=== PATIENT | female | born 1985 | race Caucasian/White ===

== ENCOUNTER 2019-05-31 05:14 | Inpatient (IN) | payer OTHER ==
[~2019-05-31] VITALS: Ht 175.3 cm; Wt 79.4 kg
[2019-05-31] VITALS (21 sets, daily range): BP systolic 93–113; BP diastolic 50–89; Ht 175.3 cm; Wt 79.4 kg
[2019-05-31] MEDS ORDERED: METOCLOPRAMIDE 10 MG/2 ML SDV IVP ONE (05:15)
[2019-05-31] MEDS ORDERED: CITRIC ACID/SOD CIT 15 ML UDC PO ONE (05:15)
[2019-05-31] MEDS ORDERED: cefOXitin/DEX(*) 2GM/50ML PREM 50 ML IVPB ONE (05:15)
[2019-05-31] MEDS ORDERED: FAMOTIDINE 20 MG/50 ML PREMIX IVPB ONE (05:15)
[2019-05-31] MEDS ORDERED: CLINDAMYCIN(*) 900 MG/NS 50 ML 50 ML IVPB ONE (05:15)
[2019-05-31] MEDS ORDERED: ONDANSETRON 4 MG/2 ML VIAL ONE (05:52)
[2019-05-31] MEDS ORDERED: MORPHINE PF 5 MG/10 ML AMP ONE (05:53)
[2019-05-31] MEDS ORDERED: fentaNYL CITR 100 MCG/2 ML AMP ONE (05:54)
[2019-05-31] MEDS ORDERED: OXYTOCIN 10 UNIT/ML SDV ONE (05:57)
[2019-05-31] MEDS ORDERED: PHENYLEPHRINE 10 MG/1 ML VIAL ONE (05:57)
[2019-05-31] MEDS ORDERED: NS(*) 0.9% 100 ML BAG 100 ML ONE (05:57)
[2019-05-31] MEDS ORDERED: ONDANSETRON 4 MG/2 ML VIAL IVP ONE (06:00)
[2019-05-31] MEDS: LR(*) 1000 ML BAG 1,000 ML IV SCH ×2 (06:00→06:20)
[2019-05-31 06:08] LABS: PLATELET COUNT, AUTOMATED 170 K/uL (150-450)
[2019-05-31] MEDS ORDERED: MISOPROSTOL 200 MCG TAB ONE (07:01)
--- NOTE | 2019-05-31 07:01 | History & Physical ---
History of Present Illness Age of Patient: 33 : 1 Para or TPAL: 0 EDC per LMP: Jun 27, 2019 Estimated Gestational Age: 36.1 Chief Complaint History of Present Illness Gladys is 36.1 weeks and has a complicated by complete placenta previa. I have been monitoring the pt closely and fortunately has not had any bleeding events. 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 She is otherwise healthy and has been uncomplicated. By the advice of MFM and for the safety of the mother, we are electing to deliver at 36 weeks and via . Past Medical, Surgical, Family and Obstetric Histories reviewed. Please see [facility] [place] chart. History Allergies: Coded Allergies: Penicillins (Verified Allergy, Mild, Hives, 05/31/19) Sulfa (Sulfonamide Antibiotics) (Verified Allergy, Unknown, N/V, 05/31/19) Review of Systems All Systems Reviewed/Normal: Yes, Except as Noted Exam General Exam General Apperance: Alert/Awake/No Acute Distress Neuro: No Gross deficits Cardiovascular: Regular Rate and Rhythm Respiratory: No Respiratory Distress Abdomen: Soft, Non-Tender, Non-Distended, Gravid - Non-Tender Integumentary: Skin Intact without Lesions or Rash Psychological: Alert & Oriented X3, Appropriate Mood & Affect Fetus Heart Tone Variabilty: Moderate FHT Accelerations: 15X15 FHT Category: I Medical Decision Making Data Points Result Diagram: 05/31/19 0541 VTE Prophylasis: Adult Deep Vein Thrombosis/Pulmonary: No Pharmacological Contraindicati: Pt at Low Risk for VTE Mechanical Contraindications: Pt at Low Risk for VTE Assessment and Plan [employer] Plan: Routine Labor/Induct Care Problems: (1) 36 weeks gestation of (2) Complete placenta previa nos or without hemorrhage, third trimester Assessment & Plan: Reviewed the risk of hemorrhage at delivery and we have PRBCs type and cross matched ready for her. Reviewed hospital stay and recovery. All questions answered. JOANNE MIMS MD May 31, 2019 07:01
[2019-05-31] MEDS ORDERED: DEXAMETHASONE SOD 4 MG/ML VIAL ONE (07:29)
[2019-05-31] MEDS ORDERED: DLR(*) 1000 ML BAG 1,000 ML IV PRN (08:21)
[2019-05-31] MEDS ORDERED: OXYTOCIN 30 UNIT/NS 500 ML 500 ML IV PRN (08:21)
[2019-05-31] MEDS ORDERED: ACETAMINOPHEN 325 MG TAB PO PRN (08:25)
[2019-05-31] MEDS ORDERED: LANOLIN OINT 7 GM TUBE TP PRN (08:25)
[2019-05-31] MEDS ORDERED: PROMETHAZINE 25 MG/ML 1 ML AMP IVP PRN (08:25)
[2019-05-31] MEDS ORDERED: SIMETHICONE 80 MG CHEW CHEW PRN (08:25)
[2019-05-31] MEDS ORDERED: ONDANSETRON 4 MG/2 ML VIAL IV PRN (08:25)
[2019-05-31] MEDS ORDERED: INFLUENZA VIRUS VAC 0.5ML SYR IM ONE (08:25)
[2019-05-31] MEDS ORDERED: oxyCODON/ACET (*)5/325MG (CII) 1 TAB TAB PO PRN (08:25)
[2019-05-31] MEDS ORDERED: ZOLPIDEM TARTRATE 10 MG TAB PO PRN (08:25)
[2019-05-31] MEDS ORDERED: MISOPROSTOL 200 MCG TAB PR ONE (08:26)
--- NOTE | 2019-05-31 08:32 | Post Operative Note ---
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
[2019-05-31] MEDS ORDERED: KETOROLAC 30 MG/ML VIAL IVP SCH (09:00)
[2019-05-31] MEDS: DOCUSATE CALCIUM 240 MG CAP PO SCH ×2 (09:00→21:41)
[2019-05-31] MEDS: FAMOTIDINE 20 MG TAB PO SCH ×2 (09:00→21:41)
--- NOTE | 2019-05-31 09:07 | Anesthesia OB Pre-Anes Eval ---
History of Present Illness Anesthesia Start Date: May 31, 2019 Anesthesia Start Time: 06:52 OB Anesthesia Diagnosis: primary c/section, other (Placenta Previa) Current Complication: other (Placenta Previa) Complications: no EDC: Jun 27, 2019 : 1 Para: 0 Vital Signs: BP: 96/65, RR:18, O2sat: 98% RA, HR: 82, Temp: 98.0 Pain Ratin Heart Tones: Normal Result Diagram: 05/31/19 0541 Height (Inches): 69 Weight (Pounds): 175 BMI (kg/m2): 26 Past Medical History Medical History: no pertinent history Surgical History: noncontributory, other ([place] teeth, Hernia, Head Cyst, EGD) Previous Anesthesia: general Hx Anesthesia Reactions: No Hx Family Anesthesia Reaction: Yes (PONV) Allergies: Coded Allergies: Penicillins (Verified Allergy, Mild, Hives, 05/31/19) Sulfa (Sulfonamide Antibiotics) (Verified Allergy, Unknown, N/V, 05/31/19) Anesthesia OB ROS Neurological: No migraines/headaches, No seizures, No neuropathy, No other ENT: Denies Tooth caps, Denies Loose teeth, Denies Chipped teeth, Denies Dentures, Denies Bridges, Denies Retainers, Denies Veneers, Denies Implants, Denies Tongue ring, Denies Other Pulmonary: No asthma, No smoker (pks/day/yrs), No other Airway Class: ll Cardiovascular ROS: No edema, No arrhythmia, No other GI ROS: NPO (2200) Last Solids Date: May 30, 2019 Last Solids Time: 22:00 ROS: No Herpes, No STD(s), No Liver Disease, No Renal Disease, No Other Endocrine ROS: No diabetes, No gestational diabetes, No thyroid disorder, No other Musculoskeletal ROS: No low back pain, No low back injury, No scoliosis, No other ASA Classification: 2 Assessment and Plan Anesthesia Plan: SAB Assessment: Heart: RRR, no MRG, no edema, no syncope, no SOB/CP Lungs: CTA bilateral Neuro: no numbness, pain or tingling Assessment Sensory level at about T7-8 in recovery room at anesthesia stop time. Vital signs stable. Anesthesia Stop Day: May 31, 2019 Anesthesia Stop Time: 08:39 JULES TRUJILLO CRNA May 31, 2019 09:07
--- NOTE | 2019-05-31 09:14 | OPERATIVE REPORT 1 ---
EVENT DATE: May 31, 2019 SURGEON: Melvin Rod MD ANESTHESIA: Spinal. PREOPERATIVE DIAGNOSIS 1. 36 weeks intrauterine . 2. Complete placenta previa. 3. Group B strep positive. POSTOPERATIVE DIAGNOSIS 1. 36 weeks intrauterine . 2. Complete placenta previa. 3. Group B strep positive. PROCEDURE PERFORMED Primary low-transverse section via Pfannenstiel skin incision. ESTIMATED BLOOD LOSS 500 cc. FLUIDS: 1300 cc. IV Crystalloid. FINDINGS Female , cephalic. Apgars 9 and 9. Vascular anterior lower uterine segment of the uterus. Normal appearing ovaries and tubes. Weight 2872 grams. DESCRIPTION OF PROCEDURE The patient was brought to the operating room with an IV in place and had been typed and cross matched for 2 units of packed red blood cells. A spinal anesthetic was administered. She was placed in the dorsal supine position with a leftward tilt, prepped and draped in the usual sterile fashion. A Pfannenstiel skin incision was made and carried through to the underlying rectus fascia. This was nicked in the midline and extended laterally. The rectus muscles were in the midline and the peritoneum was entered sharply. This was extended superiorly and inferiorly taking care to avoid injury to the underlying bladder. The bladder blade was inserted exposing the lower uterine segment. This was quite vascular appearing and location was visible just a couple of centimeters cephalad from the usual low transverse incision and it was decided to make an incision in this location. This was extended down through the uterus and the membranes were visible. Amniotomy was performed with clear fluid. This was put on lateral stretch. A hand was inserted. The 's head was elevated to the incision. I had to dissect through the placenta in order to affect this delivery. Fundal pressure was applied and the infant's head delivered atraumatically. Mouth and nose were bulb suctioned after the baby had been completely delivered. The cord was clamped and cut and the infant was passed to the awaiting resuscitation team. Cord sample was obtained. The placenta was delivered manually. The uterus was exteriorized and cleared of clots and debris. Whitman clamps were placed for hemostasis while the uterine repair was performed with a #1 Monocryl in a running locking stitch. A second suture of the same type was used to imbricate the first layer, completing a 2-layer closure. This was completely hemostatic upon completion. Therefore, the posterior cul-de-sac was irrigated until clear of clots of debris. The uterus was returned to the abdomen and bilateral pelvic gutters were irrigated until clear of clots. The incision was again inspected in situ and found to be hemostatic. The parietal peritoneum was repaired using a 3-0 Vicryl in a running nonlocking stitch. Rectus muscles were reapproximated in the midline with the same stitch. A few capillary bleeders were cauterized. Muscle bellies were irrigated and blotted dry. The rectus fascia was then repaired with an 0 Vicryl in a running nonlocking stitch. The subcuticular space was irrigated and capillary bleeders were cauterized. The space was closed with a 3-0 Vicryl plus in a running nonlocking stitch and the skin was repaired with 4-0 Monocryl simple subdermal and covered with Dermabond skin adhesive. Cytotec 800 mcg was administered rectally to help contract and support the bleeding, controlling the lower uterine segment. Sponge, lap, needle and instrument counts were all correct x3. She was taken to recovery in stable condition. ONELIA
--- NOTE | 2019-05-31 09:17 | Procedure Note ---
Anesthetic Placement Note Anesthesia Plan: SAB Permit for Anesthesia Signed: Yes Anesthesia Technique: Patient Sitting Anesthesia Prep: Chlorhexidine (Chlorhexidine and betadyne used d/t no tint/dye in chlorhexidine) Interspace: L 3-4 Local Anesthetic: 1% Lidocaine, 25 Gauge Needle Amount Local - cc's: 2 Anesthesia Needle: 25g Pencan w/Introducer Anesthesia Attempts: 1 Cerebral Spinal Fluid: Yes, Clear, Other (+ aspiration x 3 with slow injection of L.A.) Anesthesia Tray: Lot Number ([id number]), Expiration Date (04/18/2020), Reference Number Anesthesia Medications: Intrathecal Dose: mcg Fentanyl (20), mg Astromorph (.2), mg Spinal Bupivicaine (15), Time (0700) Complications: None Comment: Bilateral sensory block after injection up to about T 6-7. Good block during procedure JULES TRUJILLO CRNA May 31, 2019 09:17
[2019-05-31] MEDS ORDERED: PREN-127 PO (09:19)
[2019-05-31] MEDS: KETOROLAC 30 MG/ML VIAL IVP SCH ×2 (15:47→21:46)
[2019-06-01 03:15] VITALS: BP 102/54
[2019-06-01] MEDS: IBUPROFEN 800 MG TAB PO SCH ×3 (03:25→21:27)
[2019-06-01 06:52] LABS: PLATELET COUNT, AUTOMATED 114 K/uL (150-450)
[2019-06-01 08:10] VITALS: BP 108/64
[2019-06-01] MEDS ORDERED: OXYC-865 PO (08:59)
[2019-06-01] MEDS ORDERED: FERR-53 PO (08:59)
[2019-06-01] MEDS ORDERED: IBUP800T37 PO (08:59)
[2019-06-01] MEDS ORDERED: DOCU-416 PO (08:59)
--- NOTE | 2019-06-01 09:04 | OB/GYN Progress Note ---
OB Subjective Progress Notes Subjective Feeling well today. Little pain and bleeding scant vaginally. No syncope symptoms although her Hgb dropped more than expected. GI: NEG Nausea : Voiding Well Pain: Mild OB Objective Physical Exam Vital Signs Date Time Temp Pulse Resp B/P (MAP) Pulse Ox O2 Delivery O2 Flow Rate FiO2 05/31/19 23:25 97.7 80 18 93/63 (73) 92 Room Air Intake and Output 06/01/19 07:04 Intake Total 200 ml Output Total 4650 ml Balance -4450 ml Intake Oral 200 ml Output Urine Total 4650 ml # Voids 1 General Appearance: Alert/Awake/No Acute Distress Neurological: No Gross deficits Cardiovascular: Normal Rhythm & Peripheral Pulses Respiratory: No Respiratory Distress Abdomen: Soft, Non-Tender, Non-Distended Incision: Clean, Dry, Intact Extremities: No Cyanosis,Clubbing or Edema Integumentary: Skin Intact without Lesions or Rash Psychological: Alert & Oriented X3, Appropriate Mood & Affect Result Diagram: 06/01/19 0618 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 Take iron supplement plus PNVs when goes home. Start iron today. JOANNE MIMS MD Jun 01, 2019 09:04
--- NOTE | 2019-06-01 09:32 | Anesthesia Post Eval Note ---
Anesthesia Post Eval Note Normal. see RN charting Pt able to participate in Eval: Yes Cardiovascular Status: Satisfactory Respiratory Status: Satisfactory Pain Managment: Satisfactory PO Nausea/Vomiting: Satisfactory Temperature Management: Satisfactory Mental Status: Satisfactory, Alert, Oriented X3 Post-Op Hydration Status: Satisfactory, Tolerating PO Well, Voiding w/o Difficulty Anesthesia Type: SAB Anesthesia Tolerance: neuro exam normal. no evidence of complications related to SAB JULES TRUJILLO CRNA Jun 01, 2019 09:32
[2019-06-01] MEDS: DOCUSATE CALCIUM 240 MG CAP PO SCH ×2 (09:59→21:27)
[2019-06-01] MEDS: FAMOTIDINE 20 MG TAB PO SCH ×2 (09:59→21:27)
[2019-06-01] MEDS ORDERED: IBUPROFEN 800 MG TAB PO SCH (10:00)
[2019-06-01 11:25] VITALS: BP 95/57
[2019-06-01 15:10] VITALS: BP 102/68
[2019-06-01 19:20] VITALS: BP 98/61
[2019-06-02 00:02] VITALS: BP 105/65
[2019-06-02 03:06] VITALS: BP 98/66
[2019-06-02] MEDS: IBUPROFEN 800 MG TAB PO SCH ×2 (05:43→13:41)
[2019-06-02 08:45] VITALS: BP 108/60
[2019-06-02] MEDS ORDERED: MEASLES,MUMP,RUBELLA VAC 0.5ML SUBQ ONE (09:00)
[2019-06-02] MEDS ORDERED: DIPHTH/TETANUS/ACEL. PERTUSSIS IM ONLY ONE (09:00)
--- NOTE | 2019-06-02 09:08 | OB/GYN Progress Note ---
OB Subjective Progress Notes Subjective Feeling well. Little pain and no light headedness or syncope. Bleeding light. GI: NEG Nausea : Voiding Well Pain: Mild OB Objective Physical Exam Vital Signs Date Time Temp Pulse Resp B/P (MAP) Pulse Ox O2 Delivery O2 Flow Rate FiO2 06/02/19 03:06 98.0 90 15 98/66 (77) 96 Room Air Intake and Output 06/02/19 07:04 Intake Total 240 ml Output Total 1700 ml Balance -1460 ml Intake Oral 240 ml Output Urine Total 1700 ml General Appearance: Alert/Awake/No Acute Distress Neurological: No Gross deficits Cardiovascular: Normal Rhythm & Peripheral Pulses, Regular Rate and Rhythm Respiratory: No Respiratory Distress, Clear to Auscultation Abdomen: Soft, Non-Tender, Non-Distended Incision: Clean, Dry, Intact, Dermabond Extremities: No Cyanosis,Clubbing or Edema Integumentary: Skin Intact without Lesions or Rash Psychological: Alert & Oriented X3, Appropriate Mood & Affect Result Diagram: 06/01/19 0618 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 Reviewed discharge instructions and return to office in 2 weeks for incision check. (4) Anemia due to acute blood loss Assessment & Plan: Continue iron and PNVs. Caution when in shower. JOANNE MIMS MD Jun 02, 2019 09:08
[2019-06-02] MEDS ORDERED: OXYC-865 PO (09:11)
--- NOTE | 2019-06-02 09:14 | OB/GYN Discharge Summary ---
Discharge Summary Reason for Hosp/Final Diag: (1) 36 weeks gestation of (2) Complete placenta previa nos or without hemorrhage, third trimester (3) Other specified aftercare following surgery Hospital Course & Plan: Discharge to room in if baby needs or home later tonight. Reviewed discharge instructions and return to office in 2 weeks for incision check. (4) Anemia due to acute blood loss Hospital Course & Plan: Continue iron and PNVs. Caution when in shower. [place]ates Vital Signs Vital Signs Date Time Temp Pulse Resp B/P (MAP) Pulse Ox O2 Delivery O2 Flow Rate FiO2 06/02/19 03:06 98.0 90 15 98/66 (77) 96 Room Air Weight (Pounds): 175 Result Diagram: 06/01/19617 Condition: Improved Discharge: Home, Self Long-Term Meds Active Scripts Oxycodone Hcl/Acetaminophen (PERCOCET 5-325 MG TABLET) 1 Each Tablet, 1-2 EACH PO Q6H PRN for PAIN, #20 TAB 0 Refills Prov:JOANNE ROD MD 06/02/19 Reported Medications Vits W-Ca,Fe,Fa(<1MG) ( VITAMINS) 1 Each Tablet, 1 EACH PO DAILY, TAB 05/31/19 Follow up Referrals: LIDAR SCIENTIST - In Two Weeks @ [facility] with JOANNE ROD MD Follow up with: Dr. Rod [phone] Follow up in: 6 wks PP or PO, 2 wks PO Discharge Diet: As Tolerates Discharge Activity: As Tolerates, No Heavy Lifting x 6 wks, No Heavy Lifting > 10lb, Pelvic Rest Copies to: JOANNE ROD MD ; JOANNE ROD MD Jun 02, 2019 09:14
[2019-06-02] MEDS: DOCUSATE CALCIUM 240 MG CAP PO SCH (09:49)
[2019-06-02] MEDS: FAMOTIDINE 20 MG TAB PO SCH (09:49)
== END 2019-06-02 18:00 | disposition home or self-care (01) | DRG 787 ==
LOC: OB 05:14
PROVIDERS: ADMIT Obstetrics & Gynecology; ATTEND Obstetrics & Gynecology
PROC: 10D00Z1 Extraction of Products of Conception, Low, Open Approach (ICD-10-PCS; principal; 2019-05-31 06:50)
DX: O44.03 Complete placenta previa NOS or without hemorrhage, third trimester (principal); D62 Acute posthemorrhagic anemia; O99.824 Streptococcus B carrier state complicating childbirth; O99.02 Anemia complicating childbirth; Z3A.36 36 weeks gestation of pregnancy; Z37.0 Single live birth
CPT/HCPCS: 36415; 85014; 85018; 85025; 86703; 86850; 86900; 86901; 86920; J1100; J1885; J2270; J2370; J2405; J2590; J2765; J3010; J3490; J7050; J7120